=== PATIENT | female | born 1995 | race Two or more races ===

== ENCOUNTER 2020-07-29 16:38 | Emergency (ER) | payer MEDICAID ==
[~2020-07-29] VITALS: Ht 165.1 cm; Wt 78.0 kg
[2020-07-29] MEDS ORDERED: ACETAMINOPHEN 160 MG/5 ML UD CUP PO ONE (18:45)
[2020-07-29 20:14] VITALS: BP 112/68
== END 2020-07-29 20:37 | disposition home or self-care (01) ==
LOC: ER 16:38
DX: M54.9 Dorsalgia, unspecified (principal); M79.601 Pain in right arm; R07.89 Other chest pain
CPT/HCPCS: 71045; 99283